=== PATIENT | male | born 1990 | race Caucasian/White ===

== ENCOUNTER 2018-04-30 00:15 | Emergency (ER) | payer OTHER ==
[2018-04-30] MEDS ORDERED: HYDROcodone/APAP 5-325MG 1 EACH TAB PO STA (00:30)
--- NOTE | 2018-04-30 01:14 | XR ---
EXAMINATION TYPE: XR ribs RT w pa chest xray DATE OF EXAM: 04/30/2018 COMPARISON: NONE HISTORY: Chest pain TECHNIQUE: 5 views FINDINGS: Heart and mediastinum are normal. Lungs are clear. The right ribs appear intact. There is n o sign of pleural effusion or pneumothorax. IMPRESSION: Normal chest and right rib exam.
[2018-04-30] MEDS ORDERED: ACET/COD 300 MG/30 MG STARTER PACK 6 TAB BTL PO STA (01:28)
--- NOTE | 2018-04-30 01:28 | ED ---
Chest Pain HPI - General Source: patient Mode of arrival: ambulatory Limitations: no limitations <Jennie Coto - Last Filed: 04/30/18 18:27> <Jillian Mancilla - Last Filed: 05/02/18 01:20> - General Chief Complaint: Chest Pain Stated Complaint: Rib pain Time Seen by Provider: 04/30/18 00:25 - History of Present Illness Initial Comments: 27-year-old male patient presents to the emergency department today for evaluation of right rib pain. Patient states a week and a half ago he was out in the yard at night and he tripped over a chair and fell hitting his ribs on the chair. Patient states that he did have some discomfort to the ribs but is seems to get better. Patient states that today he was leaning into the back seat of his car when he fell a pop in the right ribs and had a sudden increase in his pain. Patient states that the ribs are still hurting. States that the pain worsens when he takes a deep breath. He denies any cough or hemoptysis. He denies any shortness of breath. He denies any other injuries. Patient denies any headache, neck pain, back pain, dizziness, weakness, abdominal pain, nausea, vomiting, or difficulties with bowel movements or urination. (Jennie Coto) - Related Data Previous Rx's Medication Instructions Recorded Ibuprofen [Motrin] 600 mg PO Q8HR PRN #30 tab 04/30/18 Allergies Allergy/AdvReac Type Severity Reaction Status Date / Time No Known Allergies Allergy Verified 04/30/18 00:21 Review of Systems ROS Other: All systems not noted in ROS Statement are negative. <Jennie Coto - Last Filed: 04/30/18 18:27> ROS Other: All systems not noted in ROS Statement are negative. <Jillian Mancilla - Last Filed: 05/02/18 01:20> ROS Statement: Those systems with pertinent positive or pertinent negative responses have been documented in the HPI. Past Medical History Past Medical History: No Reported History History of Any Multi-Drug Resistant Organisms: None Reported Additional Past Surgical History / Comment(s): eustachian tubes Past Psychological History: No Psychological Hx Reported Smoking Status: Never smoker Past Alcohol Use History: None Reported Past Drug Use History: None Reported <Jennie Coto - Last Filed: 04/30/18 18:27> General Exam Limitations: no limitations General appearance: alert, in no apparent distress, other (This is a well- developed, well-nourished adult male patient in no acute distress. Vital signs upon presentation are temperature 98.3F, pulse 76, respiration 16, blood pressure 157/101, pulse ox 99% on room air.) Eye exam: Present: normal appearance, PERRL, EOMI. Absent: scleral icterus, conjunctival injection, periorbital swelling ENT exam: Present: normal exam, normal oropharynx, mucous membranes moist Respiratory exam: Present: normal lung sounds bilaterally, chest wall tenderness (Tenderness over the seventh and eighth rib at the midclavicular line. No evidence of surface trauma.). Absent: respiratory distress, wheezes, rales, rhonchi, stridor Cardiovascular Exam: Present: regular rate, normal rhythm, normal heart sounds. Absent: systolic murmur, diastolic murmur, rubs, gallop, clicks GI/Abdominal exam: Present: soft, normal bowel sounds. Absent: distended, tenderness, guarding, rebound, rigid Neurological exam: Present: alert, oriented X3, CN II-XII intact Psychiatric exam: Present: normal affect, normal mood Skin exam: Present: warm, dry, intact, normal color. Absent: rash <Andrzej Cotoina M - Last Filed: 04/30/18 18:27> Vital Signs 04/30/18 04/30/18 00:17 02:20 Temperature 98.3 F 97.8 F Pulse Rate 76 69 Respiratory 16 18 Rate Blood Pressure 157/101 147/98 O2 Sat by Pulse 99 98 Oximetry Chest Pain [facility] <Andrzej Cotoina M - Last Filed: 04/30/18 18:27> <Jillian Mancilla P - Last Filed: 05/02/18 01:20> - [facility] RADIOLOGY:5 views of the right ribs and chest are obtained. Heart mediastinum are normal. Lungs are clear. The right ribs appear intact. There is no sign of pleural effusion or pneumothorax. Impression by Dr. Maria shows normal chest and right rib exam. MDM: 27-year-old male patient presented to the emergency department today for evaluation of right rib pain after expressing an injury about a week and a half ago. Physical exam did reveal tenderness over the seventh and eighth ribs at the midclavicular line. There is no evidence of surface trauma. Lungs are clear to auscultation with good air movement. X-rays were obtained of the right ribs and PA chest view, no acute process was identified. No evidence of rib fracture. Did discuss findings and results with the patient. We did discuss cartilage injury. He'll be given prescription for ibuprofen for pain control. He'll be given a starter pack of Tylenol with Codeine. He is given incentive spirometry for breathing exercises. He is instructed to follow-up with his primary care physician for recheck in 1-2 days. Return parameters discussed in detail. He verbalizes understanding and agrees with this plan. (Jennie Coto) I was available for consultation in the emergency department. The history and physical exam were done by the midlevel provider. I was consulted for this patient's care. I reviewed the case with the midlevel provider and based on their presentation of the patient, I agree with the assessment, medical decision making and plan of care as documented. (Jillian Mancilla) Disposition Is patient prescribed a controlled substance at d/c from ED?: No Time of Disposition: 01:28 <Jennie Coto - Last Filed: 04/30/18 18:27> <Jillian Mancilla - Last Filed: 05/02/18 01:20> Clinical Impression: Rib injury Narrative: right (Jennie Coto) Disposition: HOME SELF-CARE Condition: Good Instructions: Costochondritis (ED), Rib Contusion (ED) Additional Instructions: Apply ice to the painful areas. Splint the painful area when attempting to cough, take deep breaths, or laugh. Take medications as directed. Use incentive spirometer as directed. Follow-up with your primary care physician for recheck in 1-2 days. Return here immediately for any new, worsening, or concerning symptoms. Prescriptions: Ibuprofen [Motrin] 600 mg PO Q8HR PRN #30 tab PRN Reason: Pain Referrals: Donald Parada DO [Primary Care Provider] - 1-2 days
[2018-04-30 02:31] VITALS: BP 147/98; PULSE 69; RESP 18; TEMP 97.8
== END 2018-04-30 02:20 | disposition home or self-care (01) ==
LOC: EC 00:15
DX: S29.9XXA Unspecified injury of thorax, initial encounter (principal); W18.09XA Striking against other object with subsequent fall, initial encounter; Y92.096 Garden or yard of other non-institutional residence as the place of occurrence of the external cause
CPT/HCPCS: 99283